=== PATIENT | male | born 1980 | race Caucasian/White ===

== ENCOUNTER 2019-01-15 13:43 | Emergency (ER) | payer SELFPAY ==
[~2019-01-15] VITALS: Ht 190.5 cm; Wt 106.0 kg
[~2019-01-15 13:43] MED LIST: IBUP-1984 PO
[2019-01-15 13:50] VITALS: BP 127/87
[2019-01-15] MEDS ORDERED: PENI500T2 PO (14:42)
== END 2019-01-15 14:47 | disposition home or self-care (01) ==
LOC: ER 13:43
DX: K08.89 Other specified disorders of teeth and supporting structures (principal); J02.9 Acute pharyngitis, unspecified; R11.10 Vomiting, unspecified; F10.99 Alcohol use, unspecified with unspecified alcohol-induced disorder; F12.90 Cannabis use, unspecified, uncomplicated; Z98.890 Other specified postprocedural states; Z79.899 Other long term (current) drug therapy; Y90.9 Presence of alcohol in blood, level not specified
CPT/HCPCS: 99283

== ENCOUNTER 2020-04-25 19:24 | Emergency (ER) | payer MEDICAID ==
[~2020-04-25] VITALS: Ht 188 cm; Wt 102.3 kg
[2020-04-25 19:46] VITALS: BP 125/76
== END 2020-04-25 20:10 | disposition home or self-care (01) ==
LOC: ER 19:24
DX: J06.9 Acute upper respiratory infection, unspecified (principal); Z20.828 Contact with and (suspected) exposure to other viral communicable diseases; F12.90 Cannabis use, unspecified, uncomplicated; Z98.890 Other specified postprocedural states; Z79.899 Other long term (current) drug therapy
CPT/HCPCS: 36415; 87635; 99283